=== PATIENT | female | born 1960 | race Two or more races ===

== ENCOUNTER → 2021-11-12 | Emergency (ER) | payer MEDICAID, OTHER ==
[~2021-11-12] VITALS: Ht 154.9 cm; Wt 99.8 kg
[~2021-11-12] MED LIST: HYDR-4798 PO; KETOROLAC TROMETH 60MG/2ML VIAL IM ONE; MORPHINE SULFATE 4 MG/ML SYR/VIAL IM ONE
[2021-11-12 23:25] VITALS: BP 145/51
== END | disposition home or self-care (01) ==
LOC: ER 18:40 → EDBD 18:40
DX: T63.311A Toxic effect of venom of black widow spider, accidental (unintentional), initial encounter (principal); M79.642 Pain in left hand; Y92.89 Other specified places as the place of occurrence of the external cause
CPT/HCPCS: 96372; 99283; J1885

== ENCOUNTER 2022-01-25 22:27 | Emergency (ER) | payer MEDICAID ==
[~2022-01-25] VITALS: Ht 157.5 cm; Wt 90.0 kg
[~2022-01-25 22:27] MED LIST changes: -KETOROLAC TROMETH 60MG/2ML VIAL IM ONE; -MORPHINE SULFATE 4 MG/ML SYR/VIAL IM ONE
[2022-01-25 23:43] VITALS: BP 175/77
== END 2022-01-26 03:37 | disposition home or self-care (01) ==
LOC: ER 22:27
DX: U07.1 COVID-19 (principal); R51.9 Headache, unspecified; I10 Essential (primary) hypertension; Z79.899 Other long term (current) drug therapy
CPT/HCPCS: 93005

== ENCOUNTER 2022-08-17 20:16 | Emergency (ER) | payer MEDICAID ==
[~2022-08-17] VITALS: Ht 157.5 cm; Wt 90.0 kg
[2022-08-17 21:07] LABS: Urine Bacteria FEW /hpf (None Seen); Urine Blood Negative /uL (Negative); Urine Specific Gravity 1.025 (1.001-1.035); Urine WBC 1 /hpf (0 - 5)
[2022-08-17 21:51] LABS: Basophils # (auto) 0 10 ^3/uL (0-0.2); Basophils % (auto) 0.5 % (0.0-2.0); Eosinophils # (auto) 0.1 10 ^3/uL (0-0.8); Eosinophils % (auto) 0.5 % (0.0-7.0); Hematocrit 42.5 % (36.0-46.0); Hemoglobin 14.4 g/dL (12.2-16.2); Lymphocytes # (auto) 3.2 10 ^3/uL (0.4-5.4); Mean Corpuscular Hemoglobin 29.1 pg (28.0-32.0); Mean Corpuscular Hgb Conc. 33.9 g/dL (32.0-36.0); Mean Corpuscular Volume 85.8 fL (80.0-100.0); Monocytes # (auto) 0.6 10 ^3/uL (0-1.3); Monocytes % (auto) 6.6 % (0.0-12.0); Neutrophils # (auto) 5.8 10 ^3/uL (1.6-8.6); Neutrophils % (auto) 59.4 % (37.0-80.0); Red Blood Cells 4.96 10^6/uL (4.0-5.20); Red Cell Distribution Width 12.6 % (11.8-14.3); White Blood Cell 9.7 10^3/uL (4.4-10.8)
[2022-08-17 22:10] LABS: Albumin 3.6 g/dL (3.4-5.0); BUN/Creatinine Ratio 34.3; Calcium 8.9 mg/dL (8.5-10.1); Magnesium 2.1 mg/dL (1.6-2.6)
[2022-08-17 22:24] LABS: Potassium 4.5 mmol/L (3.5-5.1)
[2022-08-17 22:29] LABS: Bilirubin, Total 0.2 mg/dL (0.2-1.0); Total Protein 7.2 g/dL (6.4-8.2)
[2022-08-18] MEDS ORDERED: IOHEXOL 300 MG/ML 100ML BOTTLE IJ ONE
[2022-08-18 02:02] LABS: INR 0.99 (0.9-1.15); Partial Thromboplastin Time 27.1 sec (24.6-33.4)
[2022-08-18 13:44] VITALS: BP 126/77
== END 2022-08-18 14:20 | disposition short-term general hospital (02) ==
LOC: ER 20:16
DX: R20.0 Anesthesia of skin (principal); R29.810 Facial weakness; R06.02 Shortness of breath; Z79.899 Other long term (current) drug therapy
CPT/HCPCS: 36415; 70450; 70496; 71045; 80053; 81001; 83735; 84484; 85025; 85610; 85730; 93005; 99285; Q9967

== ENCOUNTER 2022-09-07 23:56 | Emergency (ER) | payer MEDICAID ==
[~2022-09-07] VITALS: Ht 154.9 cm; Wt 65.0 kg
[2022-09-08 00:26] LABS: Basophils # (auto) 0 10 ^3/uL (0-0.2); Basophils % (auto) 0.4 % (0.0-2.0); Eosinophils # (auto) 0.1 10 ^3/uL (0-0.8); Eosinophils % (auto) 0.7 % (0.0-7.0); Hematocrit 42.2 % (36.0-46.0); Hemoglobin 14.7 g/dL (12.2-16.2); Lymphocytes # (auto) 3.6 10 ^3/uL (0.4-5.4); Lymphocytes % (auto) 38.9 % (10.0-50.0); Mean Corpuscular Hemoglobin 29.7 pg (28.0-32.0); Mean Corpuscular Hgb Conc. 34.7 g/dL (32.0-36.0); Mean Corpuscular Volume 85.5 fL (80.0-100.0); Monocytes # (auto) 0.6 10 ^3/uL (0-1.3); Monocytes % (auto) 7.1 % (0.0-12.0); Neutrophils # (auto) 4.9 10 ^3/uL (1.6-8.6); Neutrophils % (auto) 52.9 % (37.0-80.0); Nucleated Red Blood Cells % 0.1 %; Red Blood Cells 4.93 10^6/uL (4.0-5.20); Red Cell Distribution Width 13.1 % (11.8-14.3); White Blood Cell 9.2 10^3/uL (4.4-10.8)
[2022-09-08 00:41] LABS: INR 0.93 (0.9-1.15); Partial Thromboplastin Time 28.3 sec (24.6-33.4)
[2022-09-08 00:46] LABS: Albumin 3.6 g/dL (3.4-5.0); BUN/Creatinine Ratio 29.4; Calcium 9.2 mg/dL (8.5-10.1); Magnesium 2.1 mg/dL (1.6-2.6); Potassium 3.8 mmol/L (3.5-5.1)
[2022-09-08 00:49] LABS: Bilirubin, Total 0.1 mg/dL (0.2-1.0); Total Protein 7.6 g/dL (6.4-8.2)
[2022-09-08 05:55] VITALS: BP 145/51
== END 2022-09-08 06:58 | disposition home or self-care (01) ==
LOC: ER 23:56
DX: R07.89 Other chest pain (principal); E86.0 Dehydration; E87.8 Other disorders of electrolyte and fluid balance, not elsewhere classified; R73.9 Hyperglycemia, unspecified; Z86.73 Personal history of transient ischemic attack (TIA), and cerebral infarction without residual deficits; Z79.899 Other long term (current) drug therapy; Z91.018 Allergy to other foods
CPT/HCPCS: 36415; 71045; 80053; 83735; 83880; 84484; 85025; 85610; 85730; 93005